=== PATIENT | female | born 2000 | race Caucasian/White ===

== ENCOUNTER 2019-02-01 18:19 | Emergency (ER) | payer SELFPAY ==
[2019-02-01] MEDS: Sodium Chloride 0.9% 1,000 ML IV ONE (18:20)
--- NOTE | 2019-02-01 18:31 | EDM.PDOC ---
ED HPI GENERAL MEDICAL PROBLEM - General Stated Complaint: STOMACH PAIN Time Seen by Provider: 02/01/19 18:19 Source of Information: Reports: Patient, EMS, Family History Limitations: Reports: No Limitations - History of Present Illness INITIAL COMMENTS - FREE TEXT/NARRATIVE: 18 y.o.w.f 14 weeks , came to the ed by EMS after she passed out at work for a few sec. Pt noticed suprapubic abd. pain with dysuria. No direct trauma to her abd. No N/V/d no dizziness after her syncopal episode. No SOB, NO CP or any other acute med issues. BP 130/74 Pulse 84 RR 18 Pulse ox 100% on RA Onset Date: 02/01/19 Onset Time: 17:50 Duration: Minutes:, Intermittent, Improving Location: Reports: Generalized Quality: Reports: Dull Severity: Mild Improves with: Reports: Rest Worsens with: Reports: Movement Context: Reports: Other () Associated Symptoms: Reports: Nausea/Vomiting, Syncope lower abd Pain Score (Numeric/FACES): 7 - Related Data Allergies Allergy/AdvReac Type Severity Reaction Status Date / Time No Known Allergies Allergy Verified 02/01/19 18:46 Home Meds: Home Meds Nitrofurantoin Monohyd/M-Cryst [Macrobid 100 mg Capsule] 100 mg PO BID #20 capsule 02/01/19 [Rx] PNV95/Ferrous Fumarate/FA [ Vitamin Tablet] 1 each PO DAILY 02/01/19 [ History] ED ROS GENERAL - Review of Systems Review Of Systems: See Below Constitutional: Reports: No Symptoms HEENT: Reports: No Symptoms Respiratory: Reports: No Symptoms Cardiovascular: Reports: No Symptoms Endocrine: Reports: No Symptoms GI/Abdominal: Reports: Abdominal Pain : Reports: Dysuria Musculoskeletal: Reports: No Symptoms Skin: Reports: No Symptoms Neurological: Reports: No Symptoms Psychiatric: Reports: No Symptoms Hematologic/Lymphatic: Reports: No Symptoms Immunologic: Reports: No Symptoms ED EXAM, NEURO - Physical Exam Exam: See Below Exam Limited By: No Limitations General Appearance: Alert, WD/WN, Mild Distress Eye Exam: Bilateral Eye: Normal Inspection Ears: Normal External Exam Nose: Normal Inspection Throat/Mouth: Normal Inspection, Normal Lips, Normal Teeth, Normal Gums, Normal Voice, No Airway Compromise, Other (dry mucosal membrane) Head Exam: Atraumatic, Normocephalic Neck: Normal Inspection, Supple, Non-Tender, Full Range of Motion Respiratory/Chest: No Respiratory Distress, Lungs Clear, Normal Breath Sounds Cardiovascular: Normal Peripheral Pulses, Regular Rate, Rhythm, No Edema GI/Abdominal: Normal Bowel Sounds, Soft, Non-Tender, Pelvis Stable, Other (14 weeks ) (Female) Exam: Deferred Rectal (Female) Exam: Deferred Neurological: Alert, Normal Mood/Affect, Normal Dorsiflexion, CN II-XII Intact Back Exam: Normal Inspection, Full Range of Motion Extremities: Normal Inspection, Normal Range of Motion, Non-Tender Psychiatric: Normal Affect, Normal Mood Skin Exam: Warm, Dry, Intact, Normal Color, No Rash EKG INTERPRETATION EKG Date: 02/01/19 Time: 20:20 Rhythm: NSR Rate (Beats/Min): 96 Bandon: Normal P-Wave: Present QRS: Normal ST-T: Normal QT: Normal Comparison: NA - No Prior EKG Course - Vital Signs Text/Narrative:: 18 y.o.w.f 14 weeks , came to the ed by EMS after she passed out at work for a few sec. Pt noticed suprapubic abd. pain with dysuria. No direct trauma to her abd. No N/V/d no dizziness after her syncopal episode. No SOB, NO CP or any other acute med issues. BP 130/74 Pulse 84 RR 18 Pulse ox 100% on RA PE: WNWD W F s/p syncope, 14 weeks . Imaging: OB Pelvic U/S: Nl as per Tech. Labs: CBC and [place] [id number] UA: pos for UTI without bleed Impression: Syncope, 14 weeks , UTI Tx: NS, Macrobid Reexam: Pt was doing fine in the ED, ambulating fine Plan: D/C with instructions Last Recorded V/S: Last Vital Signs Temp 36.9 C 02/01/19 18:19 Pulse 81 02/01/19 18:19 Resp 17 02/01/19 18:19 BP 130/74 02/01/19 18:19 Pulse Ox 100 02/01/19 18:19 Orthostatic Blood Pressure [ 129/63 Standing] Orthostatic Blood Pressure [ 127/58 Sitting] Orthostatic Blood Pressure [ 125/63 Supine] - Orders/Labs/Meds Orders: Active Orders 24 hr Category Date Time Status EKG Documentation Completion [RC] ASDIRECTED Care 02/01/19 20:07 Active Orthostatic Vital Signs [RC] ASDIRECTED Care 02/01/19 20:12 Active OB Ltd 1 or More Fetus [US] Stat Exams 02/01/19 19:43 Taken CULTURE URINE [RM] Stat Lab 02/01/19 19:45 Received UA W/MICROSCOPIC [URIN] Stat Lab 02/01/19 18:29 Ordered Sodium Chloride 0.9% [Normal Saline] 1,000 ml Med 02/01/19 19:21 Active IV ASDIRECTED Doppler FHT [Doppler Heart Tones] [WOMSER] Stat Oth 02/01/19 18:30 Ordered EKG 12 Lead [EK] Routine Ther 02/01/19 20:07 Ordered Medication Orders Sodium Chloride (Normal Saline) 1,000 mls @ 999 mls/hr IV ASDIRECTED LUCIAN Last Admin: 02/01/19 19:21 Dose: 999 mls/hr Labs: Laboratory Tests 02/01/19 02/01/19 02/01/19 Range/Units 18:29 18:38 18:38 WBC 8.6 (4.5-12.0) X10-3/uL RBC 4.22 (3.23-5.20) x10(6)uL Hgb 13.0 (11.5-15.5) g/dL Hct 37.0 (30.0-51.3) % MCV 87.6 (80-96) fL MCH 30.9 (27.7-33.6) pg MCHC 35.2 (32.2-35.4) g/dL RDW 12.6 (11.5-15.5) % Plt Count 225 (125-369) X10(3)uL MPV 7.8 (7.4-10.4) fL Neut % (Auto) 79.6 (46-82) % Lymph % (Auto) 13.8 (13-37) % Dane % (Auto) 5.8 (4-12) % Eos % (Auto) 1 (1.0-5.0) % Baso % (Auto) 0 (0-2) % Neut # (Auto) 6.8 (1.6-8.3) # Lymph # (Auto) 1.2 (0.6-5.0) # Dane # (Auto) 0.5 (0.0-1.3) # Eos # (Auto) 0.1 (0.0-0.8) # Baso # (Auto) 0.0 (0.0-0.2) # PT 10.4 (8.7-11.1) INR 1.07 (0.89-1.13) Sodium (135-145) mmol/L Potassium (3.5-5.3) mmol/L Chloride (100-110) mmol/L Carbon Dioxide (21-32) mmol/L BUN (7-18) mg/dL Creatinine (0.55-1.02) mg/dL Est Cr Clr Drug Dosing mL/min Estimated GFR (MDRD) (>60) BUN/Creatinine Ratio (9-20) Glucose (80-116) mg/dL Calcium (8.2-10.1) mg/dL HCG, Quant (<5) mIU/mL Urine Color Yellow (YELLOW) Urine Appearance Slightly cloudy (CLEAR) Urine pH 7.0 H (5.0-6.5) Ur Specific Harris 1.015 (1.010-1.025) Urine Protein Negative (NEGATIVE) mg/dL Urine Glucose (UA) Normal (NORMAL) mg/dL Urine Ketones 15 H (NEGATIVE) mg/dL Urine Occult Blood Negative (NEGATIVE) Urine Nitrite Negative (NEGATIVE) Urine Bilirubin Negative (NEGATIVE) Urine Urobilinogen Normal (NEGATIVE) mg/dL Ur Leukocyte Esterase Negative (NEGATIVE) Urine RBC 0-5 (0-5) Urine WBC 5-10 H (0-5) Ur Squamous Epith Cells Few H (NS,R,O) Urine Bacteria Moderate H (NS) 02/01/19 02/01/19 Range/Units 18:38 18:38 WBC (4.5-12.0) X10-3/uL RBC (3.23-5.20) x10(6)uL Hgb (11.5-15.5) g/dL Hct (30.0-51.3) % MCV (80-96) fL MCH (27.7-33.6) pg MCHC (32.2-35.4) g/dL RDW (11.5-15.5) % Plt Count (125-369) X10(3)uL MPV (7.4-10.4) fL Neut % (Auto) (46-82) % Lymph % (Auto) (13-37) % Dane % (Auto) (4-12) % Eos % (Auto) (1.0-5.0) % Baso % (Auto) (0-2) % Neut # (Auto) (1.6-8.3) # Lymph # (Auto) (0.6-5.0) # Dane # (Auto) (0.0-1.3) # Eos # (Auto) (0.0-0.8) # Baso # (Auto) (0.0-0.2) # PT (8.7-11.1) INR (0.89-1.13) Sodium 138 (135-145) mmol/L Potassium 3.8 (3.5-5.3) mmol/L Chloride 104 (100-110) mmol/L Carbon Dioxide 24 (21-32) mmol/L BUN 8 (7-18) mg/dL Creatinine 0.6 (0.55-1.02) mg/dL Est Cr Clr Drug Dosing 130.23 mL/min Estimated GFR (MDRD) > 60 (>60) BUN/Creatinine Ratio 13.3 (9-20) Glucose 95 (80-116) mg/dL Calcium 9.1 (8.2-10.1) mg/dL HCG, Quant 35953 (<5) mIU/mL Urine Color (YELLOW) Urine Appearance (CLEAR) Urine pH (5.0-6.5) Ur Specific Harris (1.010-1.025) Urine Protein (NEGATIVE) mg/dL Urine Glucose (UA) (NORMAL) mg/dL Urine Ketones (NEGATIVE) mg/dL Urine Occult Blood (NEGATIVE) Urine Nitrite (NEGATIVE) Urine Bilirubin (NEGATIVE) Urine Urobilinogen (NEGATIVE) mg/dL Ur Leukocyte Esterase (NEGATIVE) Urine RBC (0-5) Urine WBC (0-5) Ur Squamous Epith Cells (NS,R,O) Urine Bacteria (NS) Meds: Medications Generic Name Dose Route Start Last Admin Trade Name Freq PRN Reason Stop Dose Admin Sodium Chloride 1,000 mls @ 999 mls/hr 02/01/19 19:21 02/01/19 19:21 Normal Saline IV 999 mls/hr ASDIRECTED LUCIAN Administration Discontinued Medications Generic Name Dose Route Start Last Admin Trade Name Willem PRN Reason Stop Dose Admin Sodium Chloride 1,000 mls @ 999 mls/hr 02/01/19 18:29 02/01/19 18:20 Normal Saline IV 02/01/19 19:29 999 mls/hr .BOLUS ONE Administration Sodium Chloride 500 mls @ 999 mls/hr 02/01/19 19:21 Normal Saline IV 02/01/19 19:51 .BOLUS ONE Nitrofurantoin Macrocrystals 100 mg 02/01/19 20:03 02/01/19 20:15 Macrobid PO 02/01/19 20:04 100 mg ONETIME ONE Administration Departure - Departure Time of Disposition: 20:30 Disposition: Home, Self-Care 01 Condition: Good Clinical Impression: Second trimester Syncope Qualifiers: Syncope type: vasovagal syncope Qualified Code(s): R55 - Syncope and collapse - Discharge Information Prescriptions: Nitrofurantoin Monohyd/M-Cryst [Macrobid 100 mg Capsule] 100 mg PO BID #20 capsule Instructions: Nitrofurantoin tablets or capsules, and Urinary Tract Infection Referrals: PCP,None [Primary Care Provider] - Forms: ED Department Discharge, ED Return to Work/School Form Additional Instructions: Please increase water intake, take the Abx as recommended, please f/u, come back if your symptoms get worse acutely - My Orders Last 24 Hours: My Active Orders 02/01/19 18:29 UA W/MICROSCOPIC [URIN] Stat 02/01/19 18:30 Doppler FHT [Doppler Heart Tones] [WOMSER] Stat 02/01/19 19:21 Sodium Chloride 0.9% [Normal Saline] 1,000 ml IV ASDIRECTED 02/01/19 19:43 OB Ltd 1 or More Fetus [US] Stat 02/01/19 19:45 CULTURE URINE [RM] Stat 02/01/19 20:07 EKG Documentation Completion [RC] ASDIRECTED EKG 12 Lead [EK] Routine 02/01/19 20:12 Orthostatic Vital Signs [RC] ASDIRECTED - Assessment/Plan Last 24 Hours: My Active Orders 02/01/19 18:29 UA W/MICROSCOPIC [URIN] Stat 02/01/19 18:30 Doppler FHT [Doppler Heart Tones] [WOMSER] Stat 04/29/19 19:21 Sodium Chloride 0.9% [Normal Saline] 1,000 ml IV ASDIRECTED 02/01/19 19:43 OB Ltd 1 or More Fetus [US] Stat 02/01/19 19:45 CULTURE URINE [RM] Stat 02/01/19 20:07 EKG Documentation Completion [RC] ASDIRECTED EKG 12 Lead [EK] Routine 02/01/19 20:12 Orthostatic Vital Signs [RC] ASDIRECTED
[2019-02-01] MEDS: Sodium Chloride 0.9% 1,000 ML IV SCH (19:21)
[2019-02-01] MEDS: Sodium Chloride 0.9% 500 ML IV ONE (19:45)
[2019-02-01] MEDS: Nitrofurantoin Monohydrate/Macrocrystalline 100 MG Cap PO ONE (20:15)
--- NOTE | 2019-02-02 10:17 | US ---
INDICATION: Syncopal episode. OB ULTRASOUND LIMITED: Multiple ultrasound images revealed a single transversely lying fetus with head on the maternal right. A normal amount of amniotic fluid is noted. The placenta is posterior fundal that is a previa grade 1. No evidence of previa or abruption was seen. A regular heart rate of 162 was obtained. The cervix appears intact and unremarkable. Right ovary measured 2.56 x 1.24 x 3.5 cm and was unremarkable. The left ovary measured 2.02 x 1.33 x 3.29 cm and also was unremarkable except for some minimal follicles. No adnexal mass lesions or free fluid collections were identified. Gestational age measurements were closely grouped: BBD 15 weeks 6 days. HC 15 weeks 3 days. AC 14 weeks 5 days. FL 14 weeks 1 day and average 15 weeks 1 day, which is 6 days ahead of the LMP of 14 weeks 2 days. OLGA by ultrasound is 07/25/19 compared with 07/31/19 for the LMP OLGA. Estimated weight was 100 grams (4 ounces) 50 second percentile. IMPRESSION: Normal appearing IUP of 15 weeks 1 day which is 6 days ahead of the LMP age with an estimated weight percentile of 52%. OLGA by ultrasound is 07/25/19. MTDD
== END 2019-02-01 20:47 | disposition home or self-care (01) ==
LOC: FB.ED 18:19
DX: O23.42 Unspecified infection of urinary tract in pregnancy, second trimester (principal); O99.89 Other specified diseases and conditions complicating pregnancy, childbirth and the puerperium; R55 Syncope and collapse; Z3A.14 14 weeks gestation of pregnancy
CPT/HCPCS: 36415; 76815; 80048; 81001; 84702; 85025; 85610; 87086; 93005; 96365; 96366; 99285-25; A9270-GY; J7030

== ENCOUNTER 2019-07-26 14:04 | Inpatient (IN) | payer BC, OTHER ==
[2019-07-26] MEDS ORDERED: Lactated Ringers 1,000 ML IV ONE ×2 (14:45→15:45)
[2019-07-26] MEDS ORDERED: Oxytocin 10 Units/1 ML SDV ONE (16:00)
[2019-07-26] MEDS ORDERED: Acetaminophen/Codeine 300-30 MG Tab PO PRN (16:40)
[2019-07-26] MEDS ORDERED: Oxytocin 10 Units/1 ML SDV IM ONE (18:01)
[2019-07-26] MEDS: Ibuprofen 600 MG Tab PO PRN (19:31)
[2019-07-26] MEDS: Docusate Sodium 100 MG Cap PO SCH (20:03)
[2019-07-27] MEDS: Ibuprofen 600 MG Tab PO PRN ×3 (01:28→20:33)
[2019-07-27] MEDS: Docusate Sodium 100 MG Cap PO SCH ×2 (09:40→20:33)
[2019-07-27] MEDS: Prenatal Multivitamin with Calcium/Folic Acid/Fe Fumarate Cap PO SCH (09:40)
--- NOTE | 2019-07-27 11:00 | PN ---
DATE SEEN: 07/27/2019 SUBJECTIVE: Zhane Em is a 19-year-old primigravida female, one day . Up, ambulating, doing well. Moderate perineal discomfort. Lochia and blood loss are moderate. Nursing has been going well. PHYSICAL EXAMINATION: U-2 tone satisfactory. Perineum moderate ecchymosis. LABORATORY DATA: Hemoglobin 8.9 g%. ASSESSMENT: 1. day 1. 2. Moderate blood loss, hemoglobin 8.9. PLAN: Fluids hydration, close observation. Expect stay one more day, likely. /[id number] /OUSMANE
--- NOTE | 2019-07-27 11:34 | HP ---
ADMISSION DATE: 07/26/2019 ADDENDUM: /[id number] /OUSMANE
--- NOTE | 2019-07-27 15:18 | DEL ---
DATE OF DELIVERY: 07/26/2019 REASON FOR VISIT: Labor in progress. HISTORY OF PRESENT ILLNESS: Zhane Em is a 19-year-old primigravida female, EDC 07/30/2019, admitted to [facility] in active labor. Routine obstetrical care by Dr. Madalyn Plascencia, [employer] in [place]. Went to [place] early this morning about 2 o'clock, was there for a period of time, well being was satisfactory, 1 cm dilatation, discharge to labor at home. Went home rested, slept reluctantly, contractions continued, late morning about 10 o'clock labor began in earnest. Showed up at [facility] about 2 o'clock. Initial exam per nursing staff revealed that she just had an anterior rim. Baby was vertex, membranes were intact. A little bit of tachycardia in the 160s to 170s, but no complicating issue. I reviewed her medical records from [facility]. No complicating issues with dates or record. No gestational diabetes. Group B rectovaginal culture was negative. Nonsmoker. No alcohol. No illicit drug use. PHYSICAL EXAMINATION: VITAL SIGNS: Stable, blood pressure initially elevated at 160/101, blood pressures returned to normal. MOUTH AND OROPHARYNX: Clear. Somewhat dry mucous membranes. NECK: Benign. Thyroid small. CHEST: Clear in all lung taylor. HEART: No ectopy or murmur, 100. ABDOMEN: Term gravid uterus. PELVIC: Initial pelvic exam revealed anterior rim, intact membranes, again satisfactory feel, but some tachycardia which responded to IV fluids and lateral positioning. Amniotomy was performed. Clear amniotic fluid. She was allowed to go to complete. Second stage of labor was present, proven vertex LEONARDA presentation. Second stage of labor progressed well over the course of nearly an hour. Descent maternal efforts were excellent. When deemed appropriate, baby low in the pelvis, placed in dorsal lithotomy position. With the course of 6 to 8 quality contractions, baby presented deep, perineum was compromised, infiltrated with 2% lidocaine and midline episiotomy, a little bit to the left as initial incision. The child was delivered with next contraction in LEONARDA presentation. Nuchal cord was present and reduced without difficulty. Mouth and oropharynx were suctioned, child was delivered and warmed appropriately, lusty active cry. The child was placed directly on mom's tummy for warming and resuscitation. Cord was palpated until no further pulsation, was doubly clamped, dad cut the cord in attendance. Three cord vessels identified. Cord blood was obtained for identifications as appropriate. There was spontaneous placental separation, 3-cord vessel was intact. There had been some moderate bleeding from the episiotomy. 10 units of intramuscular Pitocin was given, 20 units was placed in the next liter of IV fluids and run at open. Uterine tone had a couple episodes of apnea responded to Pitocin and vigorous massage. The perineum was inspected. There was a little advancement of the episiotomy to the lateral left capsule in small portions of the sphincter, was infiltrated with xylocaine. Sphincter was closed and approximated with three 3-0 Vicryl mattress sutures. Well approximated. Bleeding was absent. Perineum was then closed in a complex fashion, both deep and surface layers and subcutaneous closure with 3-0 Vicryl suture. Blood loss was approximately 400 mL. Mom remained stable during this time with adequate blood pressures and mild tachycardia at 120s. ASSESSMENT: 1. Term intrauterine , 39+ weeks' gestation, amniotomy. 2. Normal spontaneous vaginal delivery of 8 pounds 3 ounce female , scores 9 and 9. 3. Midline episiotomy with third-degree extension, repaired. 4. Moderate to significant blood loss, under observation. 5. Planned nursing nutrition. PLAN: Mom will have routine course. Will be very watchful of lability of blood pressure and ambulation with assistance, and appropriate fluids. Short-term stay expected. ADDENDUM: Blood type O-positive. /[id number] /OUSMANE
[2019-07-28] MEDS: Ibuprofen 600 MG Tab PO PRN (05:10)
[2019-07-28] MEDS ORDERED: Ferrous Sulfate 325 MG Tab PO SCH (08:00)
[2019-07-28] MEDS: Docusate Sodium 100 MG Cap PO SCH (08:39)
[2019-07-28] MEDS: Prenatal Multivitamin with Calcium/Folic Acid/Fe Fumarate Cap PO SCH (08:39)
--- NOTE | 2019-07-28 13:02 | DISCH ---
DISCHARGE DATE: 07/28/2019 SUMMARY: Zhane Em is a 19-year-old primigravida female, delivered at term. Please see admission history and physical, labor and delivery note. Doing well. Did have a significant bleed. One day , 8.9, stabilized 7.9 on July 28. Little lightheadedness and some oozing has come a little difficult in a warm tub bath but doing well. Denied any palpitations or chest pain. Nursing is going well. Lochia and flow are moderated. PHYSICAL EXAMINATION: BREASTS: Parous and without problem. ABDOMEN: U-2 tone satisfactory. Perineum moderately ecchymotic but healing well. RECTAL: Deferred. ASSESSMENT: 1. Term intrauterine . 2. Vaginal delivery. Partial 3rd degree tear, anemia 7.9, addressed. 3. Nursing nutrition. PLAN: Discharge home. DISCHARGE MEDICATIONS: 1. vitamins. 2. Ibuprofen 100 mg one p.o. b.i.d. 3. Colace 100 mg one p.o. b.i.d. 4. Ferrous gluconate 324 one p.o. b.i.d. 5. Ibuprofen 600 mg q.i.d. 6. Colace 100 mg one p.o. daily. Appointment and followup time when appropriate. /[id number] HALEY/OUSMANE
== END 2019-07-28 11:30 | disposition home or self-care (01) | DRG 560 ==
LOC: FB.OBCHECK 14:04 → FB.OB 14:04 → FB.OBCHECK 14:05 → FB.OB 14:06
PROVIDERS: ADMIT Family Medicine; ATTEND Family Medicine
PROC: 10E0XZZ Delivery of Products of Conception, External Approach (ICD-10-PCS; principal; 2019-07-26)
PROC: 0W8NXZZ Division of Female Perineum, External Approach (ICD-10-PCS; 2019-07-26)
PROC: 0KQM0ZZ Repair Perineum Muscle, Open Approach (ICD-10-PCS; 2019-07-26)
DX: O99.02 Anemia complicating childbirth (principal); D62 Acute posthemorrhagic anemia; O70.20 Third degree perineal laceration during delivery, unspecified; Z3A.39 39 weeks gestation of pregnancy; Z37.0 Single live birth
CPT/HCPCS: 36415; 59409; 85014; 85018; 99211; A9270-GY; J2590; J7120